=== PATIENT | male | born 1940 | race Two or more races ===

== ENCOUNTER 2024-03-14 20:54 | Emergency (ER) | payer MEDICARE, OTHER ==
[~2024-03-14] VITALS: Ht 177.8 cm; Wt 100.0 kg
[2024-03-14 22:00] VITALS: PULSE 95; RESP 18; O2SAT 96
[2024-03-14] MEDS: cloNIDine HCL 0.1 MG TAB PO ONE (23:10)
[2024-03-14] MEDS: ONDANSETRON HCL 4 MG/2 ML VIAL IV ONE (23:43)
[2024-03-14] MEDS ORDERED: MORPHINE SULFATE INJ 2 MG/ml SYRG IV ONE (23:45)
[2024-03-14] MEDS: MORPHINE SULFATE INJ 2 MG/ml SYRG IV ONE (23:50)
[2024-03-15 00:09] VITALS: TEMP 98.5
[2024-03-15 02:10] VITALS: BP 177/95; PULSE 93; RESP 15; O2SAT 95
== END 2024-03-15 02:47 | disposition home or self-care (01) ==
LOC: EDBD 20:54 → ER 20:54
DX: S40.012A Contusion of left shoulder, initial encounter (principal); S20.212A Contusion of left front wall of thorax, initial encounter; S80.212A Abrasion, left knee, initial encounter; S80.211A Abrasion, right knee, initial encounter; S00.31XA Abrasion of nose, initial encounter; R51.9 Headache, unspecified; I10 Essential (primary) hypertension; Z85.9 Personal history of malignant neoplasm, unspecified; Z98.890 Other specified postprocedural states; W18.39XA Other fall on same level, initial encounter; Y93.89 Activity, other specified; Y92.098 Other place in other non-institutional residence as the place of occurrence of the external cause; Y99.8 Other external cause status
CPT/HCPCS: 70450; 71045; 71250; 72125; 73030; 73560; 74176; 93005; 96374; 96375; 99285; J2405